=== PATIENT | male | born 1995 | race Two or more races ===

== ENCOUNTER 2017-03-10 20:45 | Emergency (ER) | payer OTHER ==
[~2017-03-10] VITALS: Ht 177.8 cm; Wt 72.6 kg
[2017-03-10] MEDS ORDERED: HYDROMORPHONE 1 MG/1 ML DISP.SYRIN ONE (20:46)
[2017-03-10] MEDS ORDERED: ONDANSETRON HCL/PF 4 MG/2 ML VIAL ONE (20:49)
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
[2017-03-10] MEDS ORDERED: IV NS 0.9% 1,000 ML ONE (20:54)
[2017-03-10] MEDS ORDERED: IV SET PRIMARY 1 EA INFUS.SET MC ONE (20:54)
[2017-03-10] MEDS ORDERED: TDAP [DIPH/PERTUSSIS/TET] 0.5 ML VIAL IM ONE ×2 (21:00→21:29)
[2017-03-10] MEDS ORDERED: IV NS 0.9% 1,000 ML BAG IV ONE (21:00)
[2017-03-10] MEDS ORDERED: HYDROMORPHONE INJ 2 MG/ML DISP.SYRIN IV ONE (21:00)
[2017-03-10] MEDS ORDERED: ONDANSETRON HCL/PF 4 MG/2 ML VIAL IVP ONE (21:00)
[2017-03-10] MEDS ORDERED: ONDANSETRON HCL/PF 4 MG/2 ML VIAL IV ONE (21:00)
[2017-03-10 21:16] LABS: BASOPHILS # (AUTO) 0.1 /CMM (0.0-0.2); BASOPHILS % (AUTO) 0.8 % (0.0-2.0); EOSINOPHILS # (AUTO) 0.1 /CMM (0.0-0.7); EOSINOPHILS % (AUTO) 0.9 % (0.0-6.0); HEMATOCRIT 50 % (39-51); HEMOGLOBIN 16.8 g/dL (13.5-17.5); LYMPHOCYTES # (AUTO) 2.5 /CMM (0.8-4.8); LYMPHOCYTES % (AUTO) 26.9 % (20.0-44.0); MEAN CORPUSCULAR HEMOGLOBIN 29 PG (26.0-33.0); MEAN CORPUSCULAR HGB CONC 34 g/dl (31.0-36.0); MEAN CORPUSCULAR VOLUME 86 fL (80-96); MONOCYTES # (AUTO) 0.4 /CMM (0.1-1.30); MONOCYTES % (AUTO) 4.8 % (2.0-12.0); NEUTROPHILS # (AUTO) 6.3 /CMM (1.8-8.9); NEUTROPHILS % (AUTO) 66.6 % (43.0-81.0); PLATELET COUNT (AUTO) 296 /CMM (150-450); RDW COEFFICIENT OF VARIATION 12.1 (11.5-15.0); RED BLOOD CELL COUNT(AUTO) 5.84 MIL/uL (4.5-6.0); WHITE BLOOD COUNT (AUTO) 9.4 K/uL (4.3-11.0)
[2017-03-10 21:27] LABS: CALCIUM, SERUM 8.7 mg/dL (8.5-10.1); CREATININE 1.3 mg/dL (0.6-1.3); POTASSIUM 3.6 mmol/L (3.5-5.1)
[2017-03-10 21:31] LABS: INR 1.1 (0.87-1.13); PROTHROMBIN TIME 11.5 SECS (9.5-12.7)
[2017-03-10 21:33] LABS: ALBUMIN 4.1 g/dL (3.4-5.0); BILIRUBIN,DIRECT 0.1 mg/dL (0.0-0.2); BILIRUBIN,TOTAL 0.7 mg/dL (0.2-1.0); TOTAL PROTEIN, SERUM 7.5 g/dL (6.4-8.2)
[2017-03-10] MEDS ORDERED: LIDOCAINE 2%-EPI 1:100,000 30 ML VIAL ONE (21:44)
[2017-03-10] MEDS ORDERED: SILVER SULFADIAZINE CREAM 25 GM TUBE ONE (21:53)
--- NOTE | 2017-03-10 21:55 | NUR ---
DR ANDREW AT BEDSIDE FOR WOUND TREATMENT AND SUTURING.
[2017-03-10] MEDS ORDERED: LIDOCAINE SOLN 4% 50 ML BOTTLE TP ONE (22:00)
[2017-03-10] MEDS ORDERED: SILVER SULFADIAZINE CREAM 25 GM TUBE TP ONE (22:00)
[2017-03-10] MEDS ORDERED: LIDOCAINE 2%-EPI 1:100,000 30 ML VIAL TP ONE (22:00)
--- NOTE | 2017-03-10 22:42 | NUR ---
DRESSING PLACED ON WOUND/ABRASION AREAS. IV removed. Catheter intact and site benign. Pressure and 4x4 applied to site. No bleeding noted. Patient discharged to home in stable condition. Written and verbal after care instructions given. Patient verbalizes understanding of instruction. Patient is ambulatory with steady gait, accompanied by family.
[2017-03-10 22:43] VITALS: BP 120/75
== END 2017-03-10 22:58 | disposition home or self-care (01) ==
LOC: ER 20:46
DX: S42.021A Displaced fracture of shaft of right clavicle, initial encounter for closed fracture (principal); S81.811A Laceration without foreign body, right lower leg, initial encounter; S91.114A Laceration without foreign body of right lesser toe(s) without damage to nail, initial encounter; S50.311A Abrasion of right elbow, initial encounter; S80.811A Abrasion, right lower leg, initial encounter; Z23 Encounter for immunization; V23.4XXA Motorcycle driver injured in collision with car, pick-up truck or van in traffic accident, initial encounter; Y93.89 Activity, other specified; Y92.89 Other specified places as the place of occurrence of the external cause; Y99.9 Unspecified external cause status
CPT/HCPCS: 36415; 71010-TC; 72170-TC; 73030-TC; 73590-TC; 73630-TC; 80048-TC; 80076-TC; 85025-TC; 85730-TC; 86850-TC; 90715; A4606; A6402; J1170; J2405; J3490; J7030; Z7610

== ENCOUNTER 2017-03-18 19:04 | Emergency (ER) | payer OTHER ==
[~2017-03-18] VITALS: Ht 167.6 cm; Wt 63.5 kg
[2017-03-18 19:12] VITALS: BP 120/71
[2017-03-18] MEDS ORDERED: TRAMADOL HCL 50 MG TABLET PO ONE (20:30)
== END 2017-03-18 20:21 | disposition home or self-care (01) ==
LOC: ER 19:04
DX: S91.011D Laceration without foreign body, right ankle, subsequent encounter (principal); S80.811D Abrasion, right lower leg, subsequent encounter; S91.311D Laceration without foreign body, right foot, subsequent encounter
CPT/HCPCS: 99283; A4606; A6402; A6403; Z7610

== ENCOUNTER 2019-02-08 09:08 | Emergency (ER) | payer OTHER ==
[~2019-02-08] VITALS: Ht 175.3 cm; Wt 70.3 kg
[2019-02-08 09:39] LABS: BASOPHILS # (AUTO) 0.1 /CMM (0.0-0.2); BASOPHILS % (AUTO) 0.3 % (0.0-2.0); EOSINOPHILS % (AUTO) 0.1 % (0.0-6.0); HEMATOCRIT 45 % (39-51); LYMPHOCYTES # (AUTO) 0.9 /CMM (0.8-4.8); LYMPHOCYTES % (AUTO) 4.3 % (20.0-44.0); MEAN CORPUSCULAR HGB CONC 35 g/dl (31.0-36.0); MEAN CORPUSCULAR VOLUME 86 fL (80-96); MONOCYTES # (AUTO) 1.8 /CMM (0.1-1.30); MONOCYTES % (AUTO) 8.9 % (2.0-12.0); NEUTROPHILS # (AUTO) 17.5 /CMM (1.8-8.9); NEUTROPHILS % (AUTO) 86.4 % (43.0-81.0); PLATELET COUNT (AUTO) 180 /CMM (150-450); RED BLOOD CELL COUNT(AUTO) 5.23 MIL/uL (4.5-6.0); WHITE BLOOD COUNT (AUTO) 20.2 K/uL (4.3-11.0)
[2019-02-08] MEDS ORDERED: ONDANSETRON HCL/PF 4 MG/2 ML VIAL ONE (09:51)
[2019-02-08] MEDS ORDERED: MORPHINE SULFATE INJ 4 MG/ML DISP.SYRIN ONE (09:51)
[2019-02-08] MEDS ORDERED: PANTOPRAZOLE 40 MG VIAL ONE (09:52)
[2019-02-08] MEDS ORDERED: MAG HYDROX/AL HYDROX/SIMETH 30 ML UDC ONE (09:52)
[2019-02-08] MEDS ORDERED: LIDOCAINE VISCOUS 2% UD 15 ML UDC ONE (09:55)
[2019-02-08 09:57] LABS: ALBUMIN 4.1 g/dL (3.4-5.0); BILIRUBIN,DIRECT 0.2 mg/dL (0.0-0.2); CREATININE 1.1 mg/dL (0.6-1.3); POTASSIUM 4.1 mmol/L (3.5-5.1); TOTAL PROTEIN, SERUM 7.7 g/dL (6.4-8.2)
[2019-02-08] MEDS ORDERED: ONDANSETRON HCL/PF 4 MG/2 ML VIAL IVP ONE (10:00)
[2019-02-08] MEDS ORDERED: IV NS 0.9% 1,000 ML BAG IV ONE (10:00)
[2019-02-08] MEDS ORDERED: MORPHINE SULFATE INJ 2 MG/ML DISP.SYRIN IV ONE (10:00)
[2019-02-08] MEDS ORDERED: PANTOPRAZOLE 40 MG VIAL IV ONE (10:00)
[2019-02-08] MEDS ORDERED: LIDOCAINE 2% JEL UROJET 10 ML MM ONE (10:00)
[2019-02-08] MEDS ORDERED: MAG HYDROX/AL HYDROX/SIMETH 30 ML UDC PO ONE (10:00)
--- NOTE | 2019-02-08 10:03 | NUR ---
PT REC'D TO ER C/O ABD PAIN AND N/V AWAITING EVALUATION BY ER PROVIDER.
--- NOTE | 2019-02-08 10:10 | NUR ---
PT GIVEN IV LEFT AC 20G LABS SENT TO LAB . MEDS GIVEN PER MD ORDER ABD PAIN 06/26
[2019-02-08] MEDS ORDERED: CT SWABBABLE VALVE TRANS SET 1 EA INFUS.SET MC ONE (10:34)
[2019-02-08] MEDS ORDERED: IV NS 0.9% 250 ML IV ONE (10:34)
[2019-02-08] MEDS ORDERED: IOHEXOL-300 100 ML VIAL IV ONE (10:34)
--- NOTE | 2019-02-08 10:41 | NUR ---
PT STATED FELING BETTER SENT TO CT
[2019-02-08] MEDS ORDERED: CEFTRIAXONE 1GM BAG (ER ONLY) 1 GM/50 ML PIGGYBACK IV ONE (11:30)
--- NOTE | 2019-02-08 12:38 | NUR ---
PT. VERBALIZED UNDERSTANDING OF AFTERCARE INSTRUCTIONS.IV removed. Catheter intact and site benign. Pressure and 4x4 applied to site. No bleeding noted.Patient discharged to home in stable condition. Written and verbal after care instructions given. Patient verbalizes understanding of instruction.
[2019-02-08 12:39] VITALS: BP 111/73
== END 2019-02-08 12:40 | disposition home or self-care (01) ==
LOC: ER 09:08
DX: J02.0 Streptococcal pharyngitis (principal); Z98.890 Other specified postprocedural states
CPT/HCPCS: 36415; 74177; 80048; 80076; 83690; 85025; 85730; 96361; 96365; 96375; 99284; C9113; J2270; J2405; J7030; J7050; Q9967; J0696